=== PATIENT | male | born 1940 | race Caucasian/White ===

== ENCOUNTER 2024-07-25 06:46 | Day surgery (SDC) | payer OTHER ==
[~2024-07-25] VITALS: Ht 152.4 cm; Wt 63.6 kg
[~2024-07-25 06:46] MED LIST: SODIUM CHLORIDE 0.9% 1,000 ML ONE
[2024-07-25] MEDS ORDERED: FentaNYL CITRATE PF 100 MCG/2 ML VIAL ONE (07:16)
[2024-07-25] MEDS ORDERED: MIDAZOLAM HCL 2 MG/2 ML VIAL ONE (07:17)
[2024-07-25] MEDS: SODIUM CHLORIDE 0.9% 1,000 ML IV ONE (07:58)
[2024-07-25] MEDS ORDERED: ALBU18HF12 IH (08:05)
[2024-07-25] MEDS ORDERED: FAMO20 PO (08:05)
[2024-07-25] MEDS ORDERED: BENZ200C53 PO (08:05)
[2024-07-25] MEDS ORDERED: ASPI-1444 PO (08:05)
[2024-07-25] MEDS ORDERED: AZEL23SP2 NASAL (08:05)
[2024-07-25] MEDS ORDERED: MethylPREDNISolone SOD SUCC 125 MG/2 ML VIAL ONE (09:35)
[2024-07-25 09:51] VITALS: PULSE 73; RESP 18; O2SAT 96
[2024-07-25] MEDS: MethylPREDNISolone SOD SUCC 125 MG/2 ML VIAL IVP ONE (10:24)
== END 2024-07-25 14:00 | disposition home or self-care (01) ==
LOC: SURGERY 06:46
PROVIDERS: ATTEND Internal Medicine Critical Care Medicine
DX: R05.3 Chronic cough (principal); R04.2 Hemoptysis; J38.4 Edema of larynx; B37.0 Candidal stomatitis
CPT/HCPCS: 31623; 87206; 87101; 87220; 87070; 88108; 31624; 71045; 87015; J3010; J2250; J2919; J7030